=== PATIENT | male | born 1960 | race Caucasian/White ===

== ENCOUNTER 2020-05-18 14:22 | Emergency (ER) | payer MEDICAID ==
[~2020-05-18] VITALS: Ht 165.1 cm; Wt 83.0 kg
[2020-05-18] MEDS ORDERED: DOXYCYCLINE HYCLATE 100 MG/VIAL IV ONE (16:00)
[2020-05-18] MEDS ORDERED: CEPHALEXIN 250MG CAPSULE PO ONE (16:00)
[2020-05-18] MEDS ORDERED: IBUPROFEN 600MG TABLET PO ONE (16:00)
[2020-05-18] MEDS ORDERED: DOXYCYCLINE 100MG in DEXTROSE 5% WATER 100ML IV SCH (16:30)
[2020-05-18] MEDS ORDERED: LIDOCAINE HCL/PF 1% 10 MG/ML 5ML VIAL IJ ONE (16:30)
[2020-05-18] MEDS ORDERED: DOXYCYCLINE HYCLATE 100MG CAPSULE PO ONE (17:15)
[2020-05-18 17:34] VITALS: BP 148/78
== END 2020-05-18 17:34 | disposition home or self-care (01) ==
LOC: ER 14:22
DX: L02.212 Cutaneous abscess of back [any part, except buttock and flank] (principal); L03.312 Cellulitis of back [any part except buttock and flank]; I10 Essential (primary) hypertension; E11.9 Type 2 diabetes mellitus without complications
CPT/HCPCS: 10060; 87070; 87205; 99284; J3490; J7060